=== PATIENT | male | born 1990 | race Caucasian/White ===

== ENCOUNTER 2021-08-05 08:08 | Outpatient (CLI) | payer BC ==
[~2021-08-05 08:08] MED LIST: NO HOME MEDS
== END 2021-08-06 23:59 | disposition home or self-care (01) ==
LOC: RAD 08:08
PROVIDERS: ATTEND Family Medicine
DX: Z87.898 Personal history of other specified conditions (principal)
CPT/HCPCS: 95816

== ENCOUNTER 2022-04-13 11:07 | Emergency (ER) | payer BC ==
[~2022-04-13] VITALS: Ht 172.7 cm; Wt 81.4 kg
[2022-04-13 12:01] LABS: BASOPHILS % (AUTO) 0.4 % (0-1); EOSINOPHILS # (AUTO) 0.1 X10'3 (0-0.9); EOSINOPHILS % (AUTO) 1.3 % (0-6); HEMATOCRIT 49.7 % (42.0-52.0); LYMPHOCYTES # (AUTO) 0.6 X10'3 (1.1-4.8); MEAN CORPUSCULAR HEMOGLOBIN 30.9 PG (27.0-31.0); MEAN CORPUSCULAR HGB CONC 34.3 g/dL (33.0-36.5); MEAN CORPUSCULAR VOLUME 90.1 FL (78-98); MEAN PLATELET VOLUME 8.7 FL (7.4-10.4); MONOCYTES # (AUTO) 0.9 X10'3 (0-0.9); NEUTROPHILS # (AUTO) 4.5 X10'3 (1.8-7.7); NEUTROPHILS % (AUTO) 73.3 % (42-75); PLATELET COUNT 188 X10'3 (140-440); RED BLOOD COUNT 5.52 X10'6 (4.70-6.10); RED CELL DISTRIBUTION WIDTH 12.7 % (11.5-14.5); WHITE BLOOD COUNT 6.1 X10'3 (4.5-11.0)
[2022-04-13 12:17] LABS: ALANINE AMINOTRANSFERASE 100 U/L (12-78); ALBUMIN 4.3 G/DL (3.4-5.0); ALBUMIN/GLOBULIN RATIO 1.2 (1.1-1.5); ALKALINE PHOSPHATASE 101 IU/L (46-116); ANION GAP 11 (8-16); ASPARTATE AMINO TRANSFERASE 69 U/L (10-37); BILIRUBIN,TOTAL 1.2 MG/DL (0.1-1.0); BLOOD UREA NITROGEN 18 MG/DL (7-18); BUN/CREATININE RATIO 15.4 (5.4-32.0); CALCIUM 8.9 MG/DL (8.5-10.1); CHLORIDE 100 MMOL/L (99-107); CREATININE 1.17 MG/DL (0.60-1.10); GLUCOSE 114 MG/DL (70-104); LIPASE 57 U/L (73-393); SODIUM 136 MMOL/L (135-145); TOTAL CARBON DIOXIDE 25.5 MMOL/L (24-32); TOTAL PROTEIN 7.8 G/DL (6.4-8.2); eGFR 72 ML/MIN
[2022-04-13 12:20] LABS: PLATELET ESTIMATE NORMAL; TOTAL CELLS COUNTED 100
[2022-04-13] MEDS ORDERED: ondansetron/PF 4mg/2ml inj IV ONE (13:35)
[2022-04-13] MEDS ORDERED: normal saline 1000ML IV soln IVB ONE (13:35)
[2022-04-13] MEDS ORDERED: ONDA4TAB12 PO (15:13)
[2022-04-13 16:26] VITALS: BP 125/86
== END 2022-04-13 16:27 | disposition home or self-care (01) ==
LOC: ER 11:07
DX: B34.9 Viral infection, unspecified (principal); Z20.822 Contact with and (suspected) exposure to COVID-19; R11.2 Nausea with vomiting, unspecified; R19.7 Diarrhea, unspecified; R10.84 Generalized abdominal pain; G89.29 Other chronic pain; Z72.89 Other problems related to lifestyle; Z79.899 Other long term (current) drug therapy; Z88.8 Allergy status to other drugs, medicaments and biological substances
CPT/HCPCS: 36415; 80053; 83690; 85007; 85025; 87502; 87503; 87635; 96361; 96374; 99283; C9803; J2405; J7030